=== PATIENT | female | born 1965 | race Caucasian/White ===

== ENCOUNTER 2017-06-01 02:51 | Inpatient (IN) | payer OTHER ==
[~2017-06-01] VITALS: Ht 175.3 cm; Wt 94.1 kg
[2017-06-01] VITALS (7 sets, daily range): BP systolic 113–150; BP diastolic 65–98
[~2017-06-01 02:51] MED LIST: AUGMENTIN875 MG PO; BENADRYL25 MG PO; CELECOXIB200 MG PO; COUMADIN1 MG PO; ENDOCET 5-3251 EACH PO; HYDROCODON-ACE1 EA12 PO; INDOCIN25 MG PO; IRON325 M1 PO; KEFLEX500 MG PO; MAXALT5 MG PO; MELATONIN10 M2 PO; MOBIC7.5 MG PO; OXYCODONE HCL5 MG PO; PERCOCET 5/31 TABLET PO; PREMARIN0.3 MG PO; SENNA PLUS TAB1 EACH PO; SENNA-TIME S T1 EACH PO; TYLENOL REGULA325 MG PO; VICODIN 5-3001 EACH PO; XANAX0.5 MG PO; XANAX1 MG PO; XARELTO10 MG PO; ZOLOFT50 MG PO
[2017-06-01 03:20] LABS: HEMATOCRIT 38.4 % (36.0-46.0); MCH 30.7 PG (29.0-34.0); MCHC 33.9 G/DL (30.0-36.0); MCV 90.6 FL (83-99); PLATELET COUNT 311 K/uL (156-360); RBC DIS.WIDTH-CV 12.2 % (11.8-14.6); RBC DIS.WIDTH-SD 40.6 % (39-53); RED BLOOD COUNT 4.24 M/uL (3.80-5.20); WHITE BLOOD COUNT 10.5 K/uL (4.1-10.2)
[2017-06-01 03:31] LABS: CHLORIDE 109 mEq/L (99-109); POTASSIUM 3.6 mEq/L (3.7-5.4); SODIUM 141 mEq/L (136-147)
[2017-06-01 03:33] LABS: GLUCOSE 76 mg/dL (70-99)
[2017-06-01 03:37] LABS: CREATININE 0.9 mg/dL (0.6-1.3); GFR ESTIMATE (CALCULATED) > 59 mL/min/; UREA NITROGEN (BUN) 15 mg/dL (9-23)
[2017-06-01 03:44] LABS: ALBUMIN 3.9 g/dL (3.2-4.8)
[2017-06-01 03:47] LABS: TOTAL PROTEIN 6.9 g/dL (6.4-8.3)
[2017-06-01 03:49] LABS: TOTAL BILIRUBIN 0.2 mg/dL (0.0-1.0)
[2017-06-01 03:50] LABS: ALKALINE PHOSPHATASE 95 IU/L (3-129)
[2017-06-01 03:53] LABS: ALT (GPT) 10 IU/L (3-49); AST (GOT) 13 IU/L (2-34)
[2017-06-01 03:54] LABS: LIPASE 76 U/L (1.0-51.0)
[2017-06-01 04:44] LABS: APPEARANCE SL.HAZY ((CLEAR)); BILIRUBIN NEGATIVE; BLOOD SMALL; COLOR YELLOW ((YELLOW)); GLUCOSE (STRIP) NEGATIVE; KETONES 5; LEUKOCYTES TRACE; NITRITE NEGATIVE; PROTEIN (STRIP) 30; SPECIFIC GRAVITY 1.031 (1.000-1.030)
[2017-06-01 04:47] LABS: BACTERIA NONE SEEN /HPF; EPITHELIAL CELLS 1+ /HPF; MUCUS TRACE /LPF; RED BLOOD CELLS 0-5 /HPF (0-5); UCUL ADDED? NO; WHITE BLOOD CELLS 0-5 /HPF (0-5)
[2017-06-02 03:48] VITALS: BP 132/74
[2017-06-02 05:33] LABS: HEMATOCRIT 37.6 % (36.0-46.0); HEMOGLOBIN 12.7 G/DL (11.9-15.5); MCH 30.5 PG (29.0-34.0); MCHC 33.8 G/DL (30.0-36.0); MCV 90.2 FL (83-99); PLATELET COUNT 287 K/uL (156-360); RBC DIS.WIDTH-SD 39.6 % (39-53); RED BLOOD COUNT 4.17 M/uL (3.80-5.20); WHITE BLOOD COUNT 19.4 K/uL (4.1-10.2)
[2017-06-02 05:53] LABS: CHLORIDE 103 MEQ/L (99-109); CREATININE 0.8 MG/DL (0.6-1.3); GFR ESTIMATE (CALCULATED) > 59 mL/min/; POTASSIUM 3.8 MEQ/L (3.7-5.4); SODIUM 137 MEQ/L (136-147); UREA NITROGEN (BUN) 8 mg/dL (9-23)
[2017-06-02 05:58] LABS: GLUCOSE 135 mg/dL (70-99)
[2017-06-02 07:37] VITALS: BP 128/70
[2017-06-02] MEDS ORDERED: OXYCODONE HCL5 MG PO (09:12)
[2017-06-02 11:00] VITALS: BP 125/70
== END 2017-06-02 11:54 | disposition home or self-care (01) | DRG 343 ==
LOC: EME 02:51 → EDOF 05:57 → ENRESERV 06:00 → 3EAST 07:13
PROVIDERS: Surgery
PROC: 0DTJ4ZZ Resection of Appendix, Percutaneous Endoscopic Approach (ICD-10-PCS; principal; 2017-06-01)
DX: K35.80 Unspecified acute appendicitis (principal); E66.9 Obesity, unspecified; Z68.30 Body mass index [BMI] 30.0-30.9, adult; Z96.653 Presence of artificial knee joint, bilateral; Z87.442 Personal history of urinary calculi
CPT/HCPCS: 74176; 80048; 80076; 81003; 83690; 85027; 88304; 99281; 99285; J1170; J1650; J1885; J2175; J2250; J2270; J2405; J2710; J2765; J3010; J7030; S0074